=== PATIENT | male | born 1945 | race Caucasian/White ===

== ENCOUNTER 2024-07-03 11:17 | Emergency (ER) | payer MEDICARE, SELFPAY ==
[2024-07-03 11:18] VITALS: BP 168/104; PULSE 78; RESP 16; TEMP 36.6; O2SAT 100; BMI 18.6
--- NOTE | 2024-07-03 12:15 | CT_ITS ---
STUDY: CT BRAIN WITHOUT CONTRAST REASON FOR EXAM: Male, 78 years old. Confusion RADIATION DOSAGE (If Supplied By Facility): CTDIvol = ( 44.99 ) mGy, DLP = ( 812.98 ) mGycm TECHNIQUE: Transaxial CT imaging of the brain was performed without administration of intravenous contrast material. Individualized dose optimization techniques were used for this CT. COMPARISON: No relevant priors. FINDINGS: Normal soft tissue structures. Normal calvarium. Normal size ventricles and extra-axial spaces for the patient''s age. There are areas of decreased attenuation within the white matter tracts of the supratentorial brain, consistent with microvascular disease changes. Normal basal ganglia and thalami. Normal brainstem. Normal cerebellum. Probable 5.5 cm arachnoid cyst behind the cerebellum. There is no intracranial hemorrhage. There are no findings of an acute ischemic infarction. Normal visualized paranasal sinuses. CT/Brain/Head without Contrast IMPRESSION: Normal unenhanced CT scan of the brain. Electronically Signed: Derek Dunham MD at 16:35 EST ,
--- NOTE | 2024-07-03 12:15 | EKG12_ITS ---
Test Reason : Blood Pressure : */* mmHG Vent. Rate : 78 BPM Atrial Rate : 78 BPM P-R Int : 134 ms QRS Dur : 118 ms QT Int : 466 ms P-R-T Axes : 79 -69 68 degrees QTcB Int : 531 ms Atrial-sensed ventricular-paced rhythm with occasional AV dual-paced complexes and with occasional Pr emature ventricular complexes Abnormal ECG Confirmed by Chauncey Sewell ([id number]), sound editor ABDELRAHMAN DOWNEY ([id number]) on 07/06/2024 6:43:56 AM Referred By: Confirmed By: Chauncey Sewell
--- NOTE | 2024-07-03 12:15 | EX.ED.DYSGE1 ---
HPI History of Present Illness Chief Complaint: General Illness Narrative Narrative: Chief complaint and HPI: Intermittent confusion and concern for dehydration. 78-year-old male with history of CAD, nonischemic cardiomyopathy, paroxysmal A-fib, depression presents from [facility] for concern for dehydration and intermittent confusion. History was taken by patient, employee, and physician that called for report. Per report, patient is currently residing at the facility for depression. They state over the last several days he has had decreased p.o. intake as well as intermittent confusion. Patient states that he has had decreased p.o. intake secondary to abdominal pain. He has a known hiatal hernia. Patient endorses dysuria but had a negative UA at the facility. Patient denies any fever, chills, URI symptoms, chest pain, shortness of breath, nausea, vomiting, diarrhea, constipation. He is currently alert and oriented x 3. Usually alert and A&O x 4. Patient is also intermittently confused in the room and endorses this. Frequently staring off into space and not answering questions. He denies any visual or auditory hallucinations. He is very paranoid in the room and skeptical of everything. Review of systems: See HPI Medications: As listed on the chart Allergies: As listed on the chart PFSH: Per chart Vital signs: As listed on the chart. Reviewed. Physical exam: Gen: A&O x3-not baseline, NAD Head: Normocephalic, atraumatic Eyes: No sclera icterus, conjunctiva clear, PERRL, EOMI ENT: Mildly dry mucous membranes Neck: Trachea midline, No JVD CV: RRR, no murmurs, no peripheral edema, ICD Resp: Lungs CTA BL, no w/r/c GI: Abd soft, non-distended, mildly tender diffusely, no r/r/g : Normal external genitalia, no penile or testicular swelling or pain, no penile discharge, no rash Musc: Full ROM, no deformity Skin: Warm, dry Neuro: Alert, grossly intact, sensation intact Psych: Intermittently confused, intermittently uncooperative, paranoid [facility] Medical History (Updated 07/03/24 @ 18:[address] Osvaldo Ryder, ) Artificial cardiac pacemaker Allergy/AdvReac Type Severity Reaction Status Date / Time No Known Allergies Allergy Verified 12/06/24 11:21 Social History Smoking Status: Never smoker EXAM Physical Exam Const Vital Signs: 07/03/24 11:18 07/03/24 13:10 07/03/24 13:18 Temperature 97.8 F Temperature Source Oral Pulse Rate 78 104 H Respiratory Rate 16 18 Respiratory Effort Normal Respiratory Pattern Normal Blood Pressure 168/104 H 145/84 H Blood Pressure Mean 125 104 Pulse Ox 100 98 Oxygen Delivery Method Room Air Room Air 07/03/24 15:00 07/03/24 17:00 Temperature Temperature Source Pulse Rate 117 H 83 Respiratory Rate 16 17 Respiratory Effort Respiratory Pattern Blood Pressure 148/91 H 139/82 H Blood Pressure Mean 110 101 Pulse Ox 98 98 Oxygen Delivery Method Room Air Room Air MDM MDM MDM Narrative Medical decision making narrative: 78-year-old male with history of CAD, nonischemic cardiomyopathy, paroxysmal A-fib, depression presents from [facility] for concern for dehydration and intermittent confusion. Reported that he is there for depression. Patient is currently alert and oriented x 3. He is baseline is alert and orient x 4. He is intermittently confused, intermittently uncooperative, and paranoid in the room. Patient refusing treatment however due to his confusion I do not believe that he has the capacity to make this decision. Patient's POA is his who we are unable to get a hold. However we were able to get a hold of the eldest son who is second POA. He did consent for treatment. Patient was informed of this and eventually agreed to treatment as well. Differential diagnosis includes but is not limited to dehydration, UTI, intra-abdominal pathology, ACS, pneumonia, viral illness, intracranial abnormality, encephalopathy, delirium, dementia, psychiatric pathology. NS bolus. Laboratory workup ordered including CT head and CT abdomen and pelvis. EKG and chest x-ray reviewed see below. CBC without leukocytosis or anemia. CMP without significant electrolyte abnormality, ALYSSA, or transaminitis. Lipase unremarkable. Magnesium level unremarkable. Lactic acid unremarkable. Troponin unremarkable. UA negative for UTI. Positive for ketones which is consistent with his mild dehydration. CT head without any acute intracranial abnormality. CT abdomen pelvis shows probable hemangioma in the left lobe of the liver. Recommend dynamic contrast CT of the liver. Marked diffuse fecal retention and possible impaction. Patient has been having bowel movements. At this point in time, no clear etiology for patient's symptoms. On reevaluation patient is still confused and paranoid. I do recommend admission for further workup and evaluation. I was able to get a hold of the patient's who is the POA. She was reached by telephone. She states that the patient was just admitted at an [facility] facility for the same complaints. She states that he had an extensive workup that was negative. She does not want him admitted to the hospital and instead discharged back to [facility]. I did explain to her that her is currently confused and that I do not recommend this. She states that he has been intermittently confused for the past several weeks however this was not reported by [facility] employees or physician. I did explain this to her. I did explain to her that I do not think it is safe for the patient to discharge home and that if she request this she will need to be signing AGAINST MEDICAL ADVICE. states that she would like to talk to family members and call me back. It had been a while since I heard back from the I attempted to call her multiple times at the phone number listed. She did not answer. did eventually contact me back and stated that she would like the patient to discharge back to [facility]. Given that he has had decreased p.o. intake, not eating and drinking, actively confused and paranoid I do not believe that this is safe. I told her that if she wants me to discharge home he will need to leave AGAINST MEDICAL ADVICE. She states that she will sign the paper. Patient was placed on speaker phone with nursing staff. I personally explained to his that choosing to leave without further workup that may result in permanent bodily harm or . I discussed at length that without further evaluation or monitoring there may be unforeseen circumstances and deterioration causing permanent bodily harm or because of their choice. is the POA for the patient. She is alert and oriented and can make her decisions for him. She states that she is aware of the serious risks as explained, but continues to wish her to leave AGAINST MEDICAL ADVICE. Considering her decision to leave AGAINST MEDICAL ADVICE, she was educated that patient needs to follow-up with his primary care physician. She was advised that they should return to the ED if they change their mind at any time or if their condition begins to change or worsen. concerned understanding. Patient left AGAINST MEDICAL ADVICE. EKG: Interpreted by me/EM physician: EKG shows atrial sensed ventricular paced rhythm. PVCs. No acute ischemic changes. Diagnostic: Interpreted by me/EM physician: Chest x-ray without pneumonia, effusion, cardiomegaly, pneumothorax Impression: 1. Encephalopathy, unknown etiology 2. Acute paranoia 3. Dehydration 4. Decreased p.o. intake 5. Abdominal pain Lab Data Labs: Laboratory Results - last 24 hr 07/03/24 07/03/24 07/03/24 13:14 13:46 15:50 WBC 5.6 RBC 4.78 Hgb 15.4 Hct 46.3 MCV 96.9 H MCH 32.2 H MCHC 33.3 RDW Std Deviation 44.7 H RDW Coeff of Carmen 12.5 Plt Count 208 MPV 10.9 Immature Gran % (Auto) 0.200 Neut % (Auto) 65.8 Lymph % (Auto) 24.2 [place] % (Auto) 9.0 Eos % (Auto) 0.4 Baso % (Auto) 0.4 Absolute Neuts (auto) 3.7 Absolute Lymphs (auto) 1.35 Nucleated RBC % 0 Sodium 141 Potassium 4.5 Chloride 108 H Carbon Dioxide 30.0 Anion Gap 4 L BUN 17 Creatinine 0.74 Estim Creat Clear Calc 55.66 Est GFR (MDRD) Af Amer 131 Est GFR (MDRD) Non-Af 109 BUN/Creatinine Ratio 22.9 H Glucose 94 Lactic Acid 1.1 Calcium 9.1 Magnesium 2.2 Total Bilirubin 0.70 AST 29 ALT 22 Alkaline Phosphatase 85 Troponin I High Sens 10 Total Protein 6.9 Albumin 3.6 Globulin 3.3 Albumin/Globulin Ratio 1.1 Lipase 16 Urine Color Straw Urine Clarity Clear Urine pH 7.0 Ur Specific [place] 1.015 Urine Protein Negative Urine Glucose (UA) Normal Urine Ketones 50 H Urine Occult Blood Negative Urine Nitrite Negative Urine Bilirubin Negative Urine Urobilinogen Normal Ur Leukocyte Esterase Negative Urine RBC 0 SEEN Urine WBC 0-5 SEEN Ur Squamous Epith Cells 0 SEEN Urine Bacteria 0 SEEN Urine Mucus 0 SEEN Radiography Diagnostic Testing: Clinical Impression(s) from Imaging Studies Brain CT 07/03/24 12:15 IMPRESSION: Normal unenhanced CT scan of the brain. Electronically Signed: Derek Dunham MD at 16:35 EST , Abdomen/Pelvis CT 07/03/24 12:16 IMPRESSION: Limited as above. Probable hemangioma in the left lobe of the liver. Recommend confirmation with dynamic contrast CT of the liver. Marked diffuse fecal retention and possible impaction. Electronically Signed: Derek Dunham MD at 16:43 EST , Chest X-Ray 07/03/24 13:35 IMPRESSION: Hyperinflation. The lungs are clear. Electronically Signed: Shelton Diaz MD at 13:56 EST , Discharge Plan Triage Chief Complaint: General Illness ED Provider: Osvaldo Ryder Dx/Rx/DC Orders Clinical Impression: Acute confusion, Acute paranoia, Decreased oral intake Instructions: ED Confusion Primary Care Provider: Care Physician,No Primary Referrals: Brett Meza MD [Med Staff - Active Staff] - 3-5 Days NOT,DEFINED [Non-Staff] - Activity Restrictions/Additional Instructions: Please return to the ED immediately if you change your mind at any time, or if their condition begins to change or worsen. Follow-up with primary care physician. If you do not have 1 please follow-up with the 1 provided above Print Language: Mohawk Disposition Disposition: Against Medical Advice Discharge Date/Time: 07/03/24 19:15
--- NOTE | 2024-07-03 12:16 | CT_ITS ---
STUDY: CT ABDOMEN AND PELVIS WITH CONTRAST REASON FOR EXAM: Male, 78 years old. Abdominal pain RADIATION DOSAGE (If Supplied By Facility): CTDIvol = ( 12.54 ) mGy, DLP = ( 403.48 ) mGycm TECHNIQUE: Transaxial images were obtained from the dome of the diaphragm to the symphysis pubis without oral contrast. IV 100mL [id number]-[id number] was administered. Sagittal and coronal images were reconstructed. Individualized dose optimization techniques were used for this CT. COMPARISON: None. FINDINGS: Exam is limited by improper positioning of patient''s arms resulting in significant streak artifact. The visualized lung bases are unremarkable. The visualized portions of the heart are within normal limits. Normal shape and size of the liver. 3.4 cm probable hemangioma in the left lobe of the liver which needs confirmation with dynamic contrast CT of the liver.. Normal gallbladder and extrahepatic biliary system. Normal spleen. Normal pancreas. Normal bilateral adrenal glands. Normal right kidney. Normal left kidney with incidental simple cysts measuring as much as 5.5 cm. Evaluation of the GI tract is limited by absence of oral contrast. Cannot exclude stomach wall thickening. No dilated loops of bowel or evidence for obstruction. Cannot exclude segmental thickening of the santos of the small or large bowel. Cannot exclude enteritis or colitis. Marked diffuse fecal retention. Possible fecal impaction. Appendix within normal limits. Normal abdominal aorta. Normal inferior vena cava. Normal retroperitoneum. Normal urinary bladder. Normal abdominal wall. There are diffuse degenerative changes of the visualized lumbar spine. CT/Abdomen/Pelvis W IV Cont ONLY IMPRESSION: Limited as above. Probable hemangioma in the left lobe of the liver. Recommend confirmation with dynamic contrast CT of the liver. Marked diffuse fecal retention and possible impaction. Electronically Signed: Derek Dunham MD at 16:43 EST ,
[2024-07-03] MEDS: 0.9% Normal Saline (1000mL) 1,000 ML 1000 ML IV (13:12)
[2024-07-03 13:18] VITALS: BP 145/84; PULSE 104; RESP 18; O2SAT 98
--- NOTE | 2024-07-03 13:35 | RAD_ITS ---
STUDY: X-RAY CHEST REASON FOR EXAM: Male, 78 years old. Abdominal pain TECHNIQUE: Single AP portable view of the chest. COMPARISON: None. FINDINGS: Hyperinflation. The lungs are clear. There is no demonstrated pleural abnormality. Normal size heart. A left-sided dual-chamber pacemaker seen. Normal mediastinum and becca. Normal visualized pulmonary arteries. There is atherosclerotic calcification of the aortic arch with tortuosity. There are diffuse degenerative changes of the visualized thoracic spine. There is degenerative osteoarthritis of the bilateral shoulders. There is no demonstrated abnormality of the visualized soft tissue structures of the upper abdomen. RAD/Chest 1 View (Portable) IMPRESSION: Hyperinflation. The lungs are clear. Electronically Signed: Shelton Diaz MD at 13:56 EST ,
[2024-07-03 13:54] LABS: Absolute Lymphocyte Count 1.35 X10^3/uL (0.83-4.51); Absolute Neutrophil Count 3.7 X10^3/uL (2.0-7.7); Basophil# 0.02 X10^3/uL; Basophil% 0.4 % (0-1); Eosinophil# 0.02 X10^3/uL; Eosinophils% 0.4 % (0-5); Hematocrit 46.3 % (40-54); Hemoglobin 15.4 g/dL (13.0-16.5); Lymphocyte # 1.35 X10^3/ul (0.83-4.51); Lymphocyte % 24.2 % (19-41); Mean Corp Hgb Conc 33.3 g/dL (32-36); Mean Corpuscular Hgb 32.2 pg (27.0-32.0); Mean Corpuscular Volume 96.9 fL (80-94); Mean Platelet Vol. 10.9 fl (6.2-12.0); NRBC Flagged by Analyzer 0 % (0-5); Neutrophil # 3.67 X10^3/uL (2.7-7.7); Neutrophil % 65.8 % (47-70); Platelet Count 208 K/mm3 (150-450); RBC Distribution Width CV 12.5 % (11.6-14.6); RBC Distribution Width SD 44.7 fl (35.1-43.9); Red Blood Count 4.78 M/mm3 (4.6-6.2); White Blood Count 5.6 K/mm3 (4.4-11.0)
[2024-07-03 14:23] LABS: ALB/GLOB Ratio 1.1 RATIO (0.9-2.4); AST(SGOT) 29 U/L (15-37); Alanine Aminotransfer ALT/SGPT 22 U/L (16-61); Albumin, Serum 3.6 g/dL (3.2-5.0); Alkaline Phosphatase 85 U/L (45-117); Anion Gap 4 (5-15); BUN 17 mg/dL (7-18); BUN/Creat Ratio 22.9 RATIO (10-20); Calcium,Total 9.1 mg/dL (8.5-10.1); Chloride 108 mmol/L (98-107); Creatinine, Serum 0.74 mg/dL (0.70-1.30); EST Glomerular Filtration Rate 109 mL/min (>60); Est Glom Filt Rate - Afr Amer 131 mL/min (>60); Estimated Creatinine Clearance 55.66 ml/min; Globulin 3.3 g/dL (2.2-4.2); Glucose 94 mg/dL (74-106); Lipase 16 U/L (13-75); Magnesium 2.2 mg/dL (1.6-2.6); Potassium 4.5 mmol/L (3.5-5.1); Protein, Total 6.9 g/dL (6.4-8.2); Sodium Level 141 mmol/L (136-145); Troponin-I HS 10 pg/mL (3.0-78.0)
[2024-07-03 14:30] LABS: Lactic Acid 1.1 mmol/L (0.4-1.9)
[2024-07-03 15:00] VITALS: BP 148/91; PULSE 117; RESP 16; O2SAT 98
[2024-07-03 15:57] LABS: Bacteria 0 SEEN /hpf (None Seen); Mucous, Urine 0 SEEN /hpf (<or=2+); Red Blood Cells-Urine 0 SEEN /hpf (0-5); Squamous Epithelial Cells - UA 0 SEEN /hpf (0-5)
[2024-07-03 16:02] LABS: Color, Urine Straw (Yellow); Glucose, Dipstick Normal (Normal); Ketone-Dipstick 50 mg/dl (Negative); Leukocyte Esterase-Dipstick Negative /ul (Negative); Nitrite-Dipstick Negative (Negative); Occult Blood-Urine Negative /ul (Negative); Protein-Dipstick Negative (Negative); Specific Gravity, Urine 1.015 (1.002-1.030); Urine Bilirubin Dipstick Negative (Negative); Urine Clarity Clear (Clear); Urine Urobilinogen Normal (Normal)
[2024-07-03 16:13] LABS: White Blood Cells 0-5 SEEN /hpf (0-5)
[2024-07-03 17:00] VITALS: BP 139/82; PULSE 83; RESP 17; O2SAT 98
== END 2024-07-03 19:15 | disposition left against medical advice (07) ==
PROVIDERS: Emergency Provider Surgery; Visit Provider Surgery
DX: R41.0 Disorientation, unspecified (principal); I25.10 Atherosclerotic heart disease of native coronary artery without angina pectoris
CPT/HCPCS: 70450; 71045; 74177; 80053; 81001; 83605; 83690; 83735; 84484; 85025; 93005; 96360; 96361; 99284; Q9967